=== PATIENT | female | born 1995 | race Caucasian/White ===

== ENCOUNTER → 2020-09-29 | Outpatient (CLI) | payer OTHER | LOC: COL.RAD 06:32 | DX: R10.11 Right upper quadrant pain (principal) | CPT/HCPCS: A9537; J2805 ==

== ENCOUNTER 2021-11-07 01:03 | Emergency (ER) | payer OTHER ==
[~2021-11-07] VITALS: Ht 157.5 cm; Wt 55.5 kg
[2021-11-07 01:33] VITALS: TEMP 97.8
[2021-11-07 03:11] LABS: COLLECTION METHOD CLEAN CATCH
[2021-11-07 03:19] LABS: BASO % 0.2 % (0.0-2.0); EOS % 0.1 % (0.0-4.0); GRAN # 10.3 K/mm3 (1.4-6.5); GRAN % 83.7 % (42.2-75.2); HEMATOCRIT 45.1 % (37.0-47.0); HEMOGLOBIN 15.6 g/dl (12.5-16.0); LYMPH # 1.5 K/mm3 (1.2-3.4); MEAN CELL VOLUME 85 fl (80.0-100.0); MEAN CORPUSCULAR HEMOGLOBIN 29 pg (27-31); MEAN CORPUSCULAR HGB CONC 35 g/dl (33.0-37.0); MEAN PLATELET VOLUME 10.3 fl (7.4-10.4); MONO # 0.5 K/mm3 (0.1-0.6); MONO % 3.8 % (1.7-9.3); PLATELET COUNT 255 K/mm3 (130-400); RED BLOOD COUNT 5.33 M/mm3 (4.10-5.30); REDCELL DISTRIBUTION WIDTH-CV 11.9 % (11.5-14.5)
[2021-11-07 03:23] LABS: PH 7 (5-8); SQUAMOUS EPITHELIAL 0-2 /hpf (0-10); URINE APPEARANCE Clear (CLEAR/HAZY); URINE BACTERIA None Seen /hpf (NONE SEEN); URINE BILIRUBIN Negative (NEGATIVE); URINE BLOOD Negative (NEGATIVE); URINE COLOR Straw (YELLOW); URINE GLUCOSE Negative (NEGATIVE); URINE KETONE Trace (NEGATIVE); URINE LEUKOCYTE ESTERASE Negative (NEGATIVE); URINE NITRATE Negative (NEGATIVE); URINE PROTEIN(semi-quant) Negative (NEGATIVE); URINE RBC 0-2 /hpf (0-2); URINE UROBILINOGEN Negative (NEGATIVE)
[2021-11-07 03:44] LABS: ALBUMIN 4.9 gm/dL (3.5-5.0); BILIRUBIN,TOTAL 0.5 mg/dL (0.2-1.2); CALCIUM 9.3 mg/dL (8.4-10.2); CREATININE, serum 0.73 mg/dL (0.57-1.11); TOTAL PROTEIN 7.9 gm/dL (6.2-8.1)
[2021-11-07 04:25] VITALS: BP 143/91; PULSE 91
== END 2021-11-07 04:28 | disposition home or self-care (01) ==
LOC: COL.ER 01:03
PROVIDERS: Emergency Medicine
DX: K80.50 Calculus of bile duct without cholangitis or cholecystitis without obstruction (principal); D72.829 Elevated white blood cell count, unspecified; Z86.16 Personal history of COVID-19; Z32.02 Encounter for pregnancy test, result negative
CPT/HCPCS: J2270; J2405; J7030; Q9967

== ENCOUNTER → 2021-11-30 | Outpatient (CLI) | payer OTHER | LOC: COL.RAD 06:25 | DX: R10.10 Upper abdominal pain, unspecified (principal) | CPT/HCPCS: A9537 ==